=== PATIENT | male | born 1955 | race Caucasian/White ===

== ENCOUNTER 2016-04-14 12:22 | Outpatient (CLI) | payer OTHER | END 2016-04-14 12:23 | disposition home or self-care (01) | DX: M51.26 Other intervertebral disc displacement, lumbar region (principal); M51.36 Other intervertebral disc degeneration, lumbar region; M51.27 Other intervertebral disc displacement, lumbosacral region; M47.816 Spondylosis without myelopathy or radiculopathy, lumbar region ==

== ENCOUNTER 2016-05-08 10:33 | Outpatient (CLI) | payer OTHER | END 2016-05-08 10:34 | disposition home or self-care (01) | DX: R00.2 Palpitations (principal) ==

== ENCOUNTER 2016-05-08 19:10 | Outpatient (CLI) | payer OTHER | END 2016-05-08 19:11 | disposition critical access hospital (66) | DX: R00.2 Palpitations (principal) | CPT/HCPCS: A0425; A0429 ==

== ENCOUNTER 2016-05-08 19:26 | Emergency (ER) | payer OTHER ==
[2016-05-08] MEDS ORDERED: SODIUM CHLORIDE 0.9% 1,000 ML IV ONE (20:24)
[2016-05-08] MEDS ORDERED: POTASSIUM BICARB 25 MEQ TABLET PO STA (20:42)
[2016-05-08] MEDS ORDERED: MAGNESIUM SULFATE 2 GRAM 50 ML IV ONE ×2 (20:42→20:47)
[2016-05-08] MEDS ORDERED: POTASSIUM BICARB 25 MEQ TABLET PO ONE (20:47)
== END 2016-05-08 22:04 | disposition home or self-care (01) ==
DX: I49.3 Ventricular premature depolarization (principal); E87.6 Hypokalemia; E86.0 Dehydration; E83.42 Hypomagnesemia; E11.9 Type 2 diabetes mellitus without complications; Z79.84 Long term (current) use of oral hypoglycemic drugs; I10 Essential (primary) hypertension; E78.5 Hyperlipidemia, unspecified; Z79.82 Long term (current) use of aspirin
CPT/HCPCS: 36415; 80053; 83690; 83735; 84100; 84443; 84484; 85025; 93005; 93010; 96361; 96365; 99284; 99285; A9270

== ENCOUNTER 2016-05-14 10:38 | Outpatient (CLI) | payer OTHER | END 2016-05-14 10:39 | disposition home or self-care (01) | DX: R00.2 Palpitations (principal) ==

== ENCOUNTER 2016-06-04 12:25 | Outpatient (CLI) | payer OTHER | END 2016-06-04 12:26 | disposition home or self-care (01) | DX: E11.9 Type 2 diabetes mellitus without complications (principal); E78.5 Hyperlipidemia, unspecified; R35.0 Frequency of micturition; E83.42 Hypomagnesemia ==

== ENCOUNTER 2016-09-17 08:21 | Outpatient (CLI) | payer OTHER ==
[2016-09-17 12:38] LABS: HEMOGLOBIN A1C 0.69 g/dL
[2016-09-17 12:42] LABS: BILIRUBIN,TOTAL 1.9 mg/dL (0.2-1.0); BUN - BLOOD UREA NITROGEN 13 mg/dL (6-20); CALCIUM 9.4 mg/dL (8.5-10.3); CARBON DIOXIDE - CO2 30 mmol/L (21-32); CHLORIDE 98 mmol/L (101-111); CHOL/HDL RATIO 3.3 (<5.0); CHOLESTEROL 140 mg/dL; CREATININE 0.8 mg/dL (0.6-1.2); GFR - MDRD 99 (>89); GLUCOSE 133 mg/dL (70-100); HDL CHOLESTEROL 42 mg/dL; LDL/HDL RATIO 1.6 (<3.6); POTASSIUM 4.3 mmol/L (3.5-5.0); SODIUM 136 mmol/L (135-145); TRIGLYCERIDES 143 mg/dL; VLDL CHOLESTEROL 29 mg/dL
== END 2016-09-17 08:22 | disposition home or self-care (01) ==
LOC: LAB.WCP 08:21
PROVIDERS: ATTEND Physician Assistant Medical
DX: E11.9 Type 2 diabetes mellitus without complications (principal)
CPT/HCPCS: 36415; 80053; 80061; 83036

== ENCOUNTER 2016-12-28 15:04 | Outpatient (CLI) | payer OTHER ==
[2016-12-28 19:18] LABS: CALCIUM 9.7 mg/dL (8.5-10.3); CREATININE 0.9 mg/dL (0.6-1.2); MAGNESIUM 1.7 mg/dL (1.7-2.8)
[2016-12-28 19:31] LABS: HEMOGLOBIN A1C 0.66 g/dL
== END 2016-12-28 15:05 | disposition home or self-care (01) ==
LOC: LAB.WCP 15:04
PROVIDERS: ATTEND Physician Assistant Medical
DX: E11.9 Type 2 diabetes mellitus without complications (principal); E83.42 Hypomagnesemia
CPT/HCPCS: 36415; 80048; 82043; 83036; 83735

== ENCOUNTER 2017-01-28 10:55 | Outpatient (CLI) | payer OTHER | END 2017-01-28 10:56 | disposition home or self-care (01) | LOC: LAB.WCP 10:55 | PROVIDERS: ATTEND Family Medicine | DX: E87.1 Hypo-osmolality and hyponatremia (principal) | CPT/HCPCS: 36415; 80048 ==

== ENCOUNTER 2017-06-08 08:34 | Outpatient (CLI) | payer OTHER ==
[2017-06-08 13:57] LABS: CALCIUM 9.5 mg/dL (8.5-10.3); CREATININE 0.9 mg/dL (0.6-1.2); MAGNESIUM 1.8 mg/dL (1.7-2.8)
[2017-06-08 14:10] LABS: HEMOGLOBIN A1C 0.59 g/dL; HEMOGLOBIN A1C % 5.5 % (4.6-6.2)
== END 2017-06-08 08:35 | disposition home or self-care (01) ==
LOC: LAB.WCP 08:34
PROVIDERS: ATTEND Physician Assistant Medical
DX: E11.9 Type 2 diabetes mellitus without complications (principal); E83.42 Hypomagnesemia
CPT/HCPCS: 36415; 80048; 83036; 83735

== ENCOUNTER 2017-07-14 13:09 | Outpatient (CLI) | payer OTHER | END 2017-07-14 13:10 | disposition home or self-care (01) | LOC: LAB.WCP 13:09 | PROVIDERS: ATTEND Physician Assistant Medical | DX: E83.42 Hypomagnesemia (principal) | CPT/HCPCS: 36415; 83735 ==

== ENCOUNTER 2018-07-10 08:37 | Outpatient (CLI) | payer OTHER ==
[2018-07-10 12:44] LABS: CALCIUM 9.2 mg/dL (8.5-10.3); CREATININE 0.9 mg/dL (0.6-1.2); MAGNESIUM 2.1 mg/dL (1.7-2.8)
[2018-07-10 12:55] LABS: HB2 TOTAL 14.9 g/dL; HEMOGLOBIN A1C 0.65 g/dL; HEMOGLOBIN A1C % 6.1 % (4.6-6.2)
== END 2018-07-10 08:38 | disposition home or self-care (01) ==
LOC: LAB.WCP 08:37
PROVIDERS: ATTEND Physician Assistant Medical
DX: E11.9 Type 2 diabetes mellitus without complications (principal); E83.42 Hypomagnesemia
CPT/HCPCS: 36415; 80048; 83036; 83735

== ENCOUNTER 2018-11-17 08:00 | Outpatient (CLI) | payer OTHER ==
[2018-11-17 12:38] LABS: ALBUMIN 4.1 g/dL (3.2-5.5); ALBUMIN/GLOBULIN RATIO 1.6 (1.0-2.2); ALKALINE PHOSPHATASE 64 IU/L (42-121); ALT ALANINE AMINOTRANSFERASE 33 IU/L (10-60); AST ASPARTATE AMINOTRANSFERASE 26 IU/L (10-42); BILIRUBIN,TOTAL 1.8 mg/dL (0.2-1.0); BUN - BLOOD UREA NITROGEN 13 mg/dL (6-20); CALCIUM 9.3 mg/dL (8.5-10.3); CARBON DIOXIDE - CO2 27 mmol/L (21-32); CHLORIDE 99 mmol/L (101-111); CHOL/HDL RATIO 3.7 (<5.0); CHOLESTEROL 146 mg/dL; CREATININE 0.9 mg/dL (0.6-1.2); GFR - MDRD 86 (>89); GLUCOSE 154 mg/dL (70-100); HDL CHOLESTEROL 40 mg/dL; LDL CHOLESTEROL,CALCULATED 75 mg/dL; LDL/HDL RATIO 1.9 (<3.6); SODIUM 137 mmol/L (135-145); TOTAL PROTEIN 6.7 g/dL (6.7-8.2); VLDL CHOLESTEROL 31 mg/dL
[2018-11-17 13:07] LABS: HB2 TOTAL 15.8 g/dL; HEMOGLOBIN A1C 0.64 g/dL; HEMOGLOBIN A1C % 5.9 % (4.6-6.2)
[2018-11-17 14:06] LABS: BASOPHILS % (AUTO) 0.8 %; EOSINOPHILS # (AUTO) 0.3 10^3/uL (0.0-0.7); EOSINOPHILS % (AUTO) 6.6 %; HGB - HEMOGLOBIN 15.1 g/dL (14.0-18.0); LYMPHOCYTES # (AUTO) 1.2 10^3/uL (1.5-3.5); LYMPHOCYTES % (AUTO) 23.9 %; MEAN CORPUSCULAR HEMOGLOBIN 31.4 pg (27.0-31.0); MEAN CORPUSCULAR HGB CONC 33.7 g/dL (32.0-36.0); MEAN CORPUSCULAR VOLUME 93.1 fL (80.0-94.0); MEAN PLATELET VOLUME 9.3 fL (7.4-11.4); MONOCYTES # (AUTO) 0.6 10^3/uL (0.0-1.0); MONOCYTES % (AUTO) 11.3 %; NEUTROPHILS # (AUTO) 2.9 10^3/uL (1.5-6.6); PLT - PLATELET COUNT 336 10^3/uL (130-450); RED BLOOD COUNT 4.81 10^6/uL (4.70-6.10); RED CELL DISTRIBUTION WIDTH 11.9 % (12.0-15.0); WHITE BLOOD COUNT 5.1 x10^3/uL (4.8-10.8)
== END 2018-11-17 23:59 ==
LOC: LAB.WCP 08:00
PROVIDERS: ATTEND Physician Assistant Medical
DX: Z00.00 Encounter for general adult medical examination without abnormal findings (principal); E11.9 Type 2 diabetes mellitus without complications; E78.5 Hyperlipidemia, unspecified; Z12.5 Encounter for screening for malignant neoplasm of prostate; E83.42 Hypomagnesemia
CPT/HCPCS: 36415; 80053; 80061; 83036; 83721; 83735; 84153; 85025

== ENCOUNTER 2019-03-23 08:00 | Outpatient (CLI) | payer OTHER ==
[2019-03-23 13:48] LABS: CREATININE 0.9 mg/dL (0.6-1.2); MAGNESIUM 1.9 mg/dL (1.7-2.8)
[2019-03-23 14:00] LABS: HB2 TOTAL 15.7 g/dL; HEMOGLOBIN A1C 0.58 g/dL; HEMOGLOBIN A1C % 5.5 % (4.6-6.2)
== END 2019-03-23 23:59 | disposition home or self-care (01) ==
LOC: LAB.WCP 08:00
PROVIDERS: ATTEND Physician Assistant Medical
DX: E11.9 Type 2 diabetes mellitus without complications (principal); E83.42 Hypomagnesemia
CPT/HCPCS: 36415; 80048; 83036; 83735

== ENCOUNTER 2019-03-28 11:13 | Outpatient (CLI) | payer OTHER ==
--- NOTE | 2019-03-28 15:33 | XRAY Report ---
Reason: RIGHT TROCHANTERIC BURSITIS Procedure Date: 03/28/2019 Accession Number: [id number] / [id number] Procedure: WCP - Hip 1 View RT CPT Code: Addended Final Report FULL RESULT: EXAM: RIGHT HIP RADIOGRAPHY EXAM DATE: 03/28/2019 11:13 AM. CLINICAL HISTORY: Chronic right hip pain. COMPARISON: None. TECHNIQUE: 2 views. FINDINGS: Bones: Normal bone mineralization. No fractures or bone lesion. Joints: Normal. No dislocation. The hip joint space is preserved. Soft Tissues: No soft tissue swelling. Pelvic phleboliths. Ovoid calcifications in the left hemipelvis measuring 12 mm in diameter. IMPRESSION: 1. No fracture, subluxation or hip joint effusion. 2. Left pelvic ovoid calcification measuring 12 mm in diameter. [facility] ADDENDUM: 03/30/19 15:28 The pelvic calcifications are most likely phleboliths in the absence of clinical or laboratory findings of urinary tract stones.
== END 2019-03-28 23:59 | disposition home or self-care (01) ==
LOC: DI.WCP 11:13
PROVIDERS: ATTEND Physician Assistant Medical
DX: M70.61 Trochanteric bursitis, right hip (principal)

== ENCOUNTER 2019-06-20 08:29 | Outpatient (CLI) | payer OTHER ==
[2019-06-20 13:09] LABS: ALBUMIN 4.4 g/dL (3.2-5.5); ALBUMIN/GLOBULIN RATIO 1.9 (1.0-2.2); ALKALINE PHOSPHATASE 65 IU/L (42-121); ALT ALANINE AMINOTRANSFERASE 28 IU/L (10-60); AST ASPARTATE AMINOTRANSFERASE 26 IU/L (10-42); BILIRUBIN,TOTAL 1.7 mg/dL (0.2-1.0); BUN - BLOOD UREA NITROGEN 13 mg/dL (6-20); CARBON DIOXIDE - CO2 27 mmol/L (21-32); CHLORIDE 104 mmol/L (101-111); CHOLESTEROL 161 mg/dL; CREATININE 0.9 mg/dL (0.6-1.2); GLUCOSE 135 mg/dL (70-100); HDL CHOLESTEROL 40 mg/dL; LDL CHOLESTEROL,CALCULATED 85 mg/dL; LDL/HDL RATIO 2.1 (<3.6); SODIUM 138 mmol/L (135-145); TOTAL PROTEIN 6.7 g/dL (6.7-8.2); VLDL CHOLESTEROL 36 mg/dL
[2019-06-20 13:17] LABS: HB2 TOTAL 15.8 g/dL; HEMOGLOBIN A1C 0.63 g/dL; HEMOGLOBIN A1C % 5.8 % (4.6-6.2)
== END 2019-06-20 23:59 | disposition home or self-care (01) ==
LOC: LAB.WCP 08:29
PROVIDERS: ATTEND Physician Assistant Medical
DX: E11.9 Type 2 diabetes mellitus without complications (principal)
CPT/HCPCS: 36415; 80053; 80061; 83036; 83721

== ENCOUNTER 2019-10-06 10:51 | Emergency (ER) | payer OTHER ==
--- NOTE | 2019-10-06 11:16 | ED Physician Documentation ---
PD HPI UPPER EXT INJURY - Stated complaint Stated Complaint: L SHOULDER PAIN - Chief complaint Chief Complaint: Ext Problem - History obtained from History obtained from: Patient - Additonal information Additional information: This is a mostly right-handed but somewhat ambidextrous 63-year-old gentleman with history of right shoulder issues. 4 days ago he was throwing something in the yard and developed a sometimes severe diffuse left shoulder pain that is worse with certain movements. No fall or specific injury other than that. No history of left shoulder issues. Review of Systems Constitutional: reports: Reviewed and negative Nose: reports: Reviewed and negative Throat: reports: Reviewed and negative Cardiac: reports: Reviewed and negative PD PAST MEDICAL HISTORY - Past Medical History Cardiovascular: Hypertension, High cholesterol Endocrine/Autoimmune: Type 2 diabetes - Past Surgical History Past Surgical History: Yes General: Cholecystectomy - Present Medications Home Medications: Ambulatory Orders Medication Instructions Recorded Confirmed Aspirin 81 mg PO DAILY 05/08/16 05/08/16 Atorvastatin [Lipitor] 40 mg PO DAILY 05/08/16 05/08/16 atenoloL [Atenolol] 25 mg PO BID 05/08/16 05/08/16 hydroCHLOROthiazide 25 mg PO DAILY 05/08/16 05/08/16 [Hydrochlorothiazide] lisinopriL [Lisinopril] 40 mg PO DAILY 05/08/16 05/08/16 metFORMIN [Glucophage] 500 mg PO TID 05/08/16 05/08/16 Oxycodone HCl/Acetaminophen 1 - 2 each PO Q6H PRN #14 tablet 10/06/19 [Percocet 5-325 mg Tablet] - Allergies Allergies/Adverse Reactions: Allergies Allergy/AdvReac Type Severity Reaction Status Date / Time No Known Drug Allergies Allergy Verified 05/08/16 19:30 - Social History Does the pt smoke?: No Smoking Status: Never smoker Does the pt drink ETOH?: Yes Does the pt have substance abuse?: Yes PD ED PE NORMAL - Vitals Vital signs reviewed: Yes - General General: Alert and oriented X 3, No acute distress - Extremities Extremities: Other (Left shoulder is nontender, he has a lot of pain with abduction and also reaching across his chest. Negative supraspinatus testing. Painless internal and external rotation. He is able to abduct to about 90 degrees.) - Neuro Neuro: Alert and oriented X 3, Normal speech Results - Vitals Vitals: Vital Signs - 24 hr 10/06/19 11:01 Temperature 36.8 C Heart Rate 78 Respiratory 16 Rate Blood Pressure 175/98 H O2 Saturation 98 Oxygen O2 Source Room air - Rads (name of study) L shoulder XR Radiology: EMP read contemporaneously (Calcifications near the humeral head consistent with chronic rotator cuff tendinopathy, degenerative changes of the left AC joint, no acute fractures.) Departure - Departure Disposition: 01 Home, Self Care Clinical Impression: Rotator cuff tendinitis Qualifiers: Laterality: left Qualified Code(s): M75.82 - Other shoulder lesions, left shoulder Condition: Good Record reviewed to determine appropriate education?: Yes Instructions: ED Tendinitis Calcific Prescriptions: Oxycodone HCl/Acetaminophen [Percocet 5-325 mg Tablet] 1 - 2 each PO Q6H PRN #14 tablet PRN Reason: pain Comments: Do the exercises as shown to maintain mobility in the shoulder joints. Follow- up with your doctor, they may refer you to orthopedics if it is persistent for consideration for steroid injection at our. Return if worse. Do not drink or drive while taking narcotic pain medication. Note that many narcotic pain relievers also contain Tylenol/acetaminophen. Please ensure that your total dose of acetaminophen from all sources does not exceed 3 g (3000 mg) per day. You may get constipated while on this medication. Take a stool softener such as Colace twice a day while you are on it. Also add an [id number] laxative such as senna or MiraLAX on any day that you do not have a bowel movement. If you received a narcotic pain medication or sedative while in the emergency department, do not drive for the next 24 hours.
--- NOTE | 2019-10-06 11:55 | XRAY Report ---
PROCEDURE: Shoulder 3 View LT INDICATIONS: l shoulder inj TECHNIQUE: 3 views of the shoulder were acquired. COMPARISON: None. FINDINGS: Bones: No fractures or dislocations. No suspicious bony lesions. Degenerative changes of the left acromioclavicular joint. Visualized ribs appear intact. Soft tissues: Soft tissue calcifications over the superolateral left humeral head. No suspicious sof t tissue calcifications. IMPRESSION: 1. Soft tissue calcifications over the superolateral left humeral head suggestive of sequela of chron ic calcific rotator cuff tendinopathy. 2. Degenerative changes of the left acromioclavicular joint. 3. Left shoulder without acute fracture or dislocation. Reviewed by: Adrian Vergara MD on 10/06/2019 11:53 AM PDT Approved by: Adrian Vergara MD on 10/06/2019 11:53 AM PDT Station ID: [id number]
[2019-10-06 12:13] VITALS: BP 153/105
== END 2019-10-06 12:13 | disposition home or self-care (01) ==
LOC: ED 10:51
DX: M75.32 Calcific tendinitis of left shoulder (principal); M19.012 Primary osteoarthritis, left shoulder; I10 Essential (primary) hypertension; E11.9 Type 2 diabetes mellitus without complications; Z79.84 Long term (current) use of oral hypoglycemic drugs; Z79.82 Long term (current) use of aspirin
CPT/HCPCS: 99283

== ENCOUNTER 2020-01-17 07:45 | Day surgery (SDC) | payer OTHER ==
[2020-01-17] MEDS ORDERED: LACTATED RINGERS 1,000 ML IV ONE ×2 (08:28→10:31)
[2020-01-17] MEDS ORDERED: MIDAZOLAM 2 MG/2 ML VIAL IVP ONE (10:03)
[2020-01-17] MEDS ORDERED: fentaNYL 100 MCG/2 ML VIAL IVP ONE (10:03)
[2020-01-17 10:47] VITALS: BP 107/73
== END 2020-01-17 07:46 | disposition home or self-care (01) ==
LOC: SDS 07:45
PROVIDERS: ATTEND Surgery
DX: Z12.11 Encounter for screening for malignant neoplasm of colon (principal); K57.30 Diverticulosis of large intestine without perforation or abscess without bleeding; I10 Essential (primary) hypertension; E11.9 Type 2 diabetes mellitus without complications; Z79.84 Long term (current) use of oral hypoglycemic drugs
CPT/HCPCS: 45378; J7120

== ENCOUNTER 2020-09-30 08:00 | Outpatient (CLI) | payer OTHER ==
[2020-09-30 12:48] LABS: CREATININE,URINE 35.7 mg/dL; MICROALBUM/CREATININE RATIO,UR 25.2 ug/mg (<30.0); MICROALBUMIN,URINE 0.9 mg/dL (0-300.0)
== END 2020-09-30 23:59 | disposition home or self-care (01) ==
LOC: LAB.WCP 08:00
PROVIDERS: ATTEND Physician Assistant Medical
DX: E11.9 Type 2 diabetes mellitus without complications (principal)
CPT/HCPCS: 82043; 82570

== ENCOUNTER 2020-12-24 08:58 | Outpatient (CLI) | payer OTHER ==
[2020-12-24 12:42] LABS: ALBUMIN 4.6 g/dL (3.2-5.5); ALBUMIN/GLOBULIN RATIO 1.8 (1.0-2.2); ALKALINE PHOSPHATASE 63 IU/L (42-121); ALT ALANINE AMINOTRANSFERASE 26 IU/L (10-60); AST ASPARTATE AMINOTRANSFERASE 21 IU/L (10-42); BILIRUBIN,TOTAL 1.3 mg/dL (0.2-1.0); BUN - BLOOD UREA NITROGEN 14 mg/dL (6-20); CALCIUM 9.4 mg/dL (8.5-10.3); CARBON DIOXIDE - CO2 31 mmol/L (21-32); CHLORIDE 98 mmol/L (101-111); CHOL/HDL RATIO 3.2 (<5.0); CHOLESTEROL 140 mg/dL; GFR - MDRD 75 (>89); GLUCOSE 136 mg/dL (70-100); HDL CHOLESTEROL 44 mg/dL; LDL CHOLESTEROL,CALCULATED 70 mg/dL; LDL/HDL RATIO 1.6 (<3.6); POTASSIUM 4.6 mmol/L (3.5-5.0); SODIUM 138 mmol/L (135-145); TOTAL PROTEIN 7.1 g/dL (6.7-8.2); TRIGLYCERIDES 128 mg/dL; VLDL CHOLESTEROL 26 mg/dL
[2020-12-24 13:00] LABS: ESTIMATED AVERAGE GLUCOSE 114 mg/dL (70-100); HEMOGLOBIN A1c% 5.6 % (4.27-6.07)
== END 2020-12-24 23:59 | disposition home or self-care (01) ==
LOC: LAB.WCP 08:58
PROVIDERS: ATTEND Physician Assistant Medical
DX: I49.3 Ventricular premature depolarization (principal); Z12.5 Encounter for screening for malignant neoplasm of prostate; E11.9 Type 2 diabetes mellitus without complications
CPT/HCPCS: 36415; 80053; 80061; 83036; 83721; 83735; 84153

== ENCOUNTER 2021-07-21 18:11 | Outpatient (CLI) | payer OTHER ==
[2021-07-21 18:24] LABS: BILIRUBIN,URINE NEGATIVE (NEGATIVE); GLUCOSE, URINE (UA) NEGATIVE (NEGATIVE); KETONES,URINE (UA) NEGATIVE (NEGATIVE); LEUKOCYTE ESTERASE, URINE NEGATIVE (NEGATIVE); NITRITE,URINE NEGATIVE (NEGATIVE); OCCULT BLOOD,URINE TRACE-INTA (NEGATIVE); PROTEIN,URINE NEGATIVE (NEGATIVE); UROBILINOGEN,URINE 0.2 (NORMAL) E.U./dL (NORMAL)
[2021-07-21 18:25] LABS: CLARITY,URINE CLEAR (CLEAR)
[2021-07-21 18:48] LABS: BACTERIA,URINE Rare /HPF (None Seen); RBC,URINE 0-5 /HPF (0-5); SQUAMOUS EPITHELIAL CELL,UR RARE Squamous (<= Few); WBC,URINE 0-3 /HPF (0-3)
== END 2021-07-21 18:12 | disposition home or self-care (01) ==
LOC: LAB 18:11
PROVIDERS: ATTEND Nurse Practitioner
DX: R30.0 Dysuria (principal)
CPT/HCPCS: 81001; 87086

== ENCOUNTER 2021-10-28 08:00 | Outpatient (CLI) | payer OTHER ==
[2021-11-02 15:08] LABS: CALCIUM OXALATE DIHYDRATE 100 % (.); STONE COLOR Tan (.); STONE SIZE 8x5 mm (.); STONE WEIGHT 90 mg (.)
== END 2021-10-28 23:59 | disposition home or self-care (01) ==
LOC: LAB.N 08:00
PROVIDERS: ATTEND Physician Assistant Medical
DX: N20.0 Calculus of kidney (principal)
CPT/HCPCS: 82365

== ENCOUNTER 2022-12-10 12:42 | Outpatient (CLI) | payer MEDICARE, OTHER ==
--- NOTE | 2022-12-10 16:51 | MRI Report ---
PROCEDURE: SHOULDER WO - LT INDICATIONS: SHOULDER IMPINGEMENT SYNDROME TECHNIQUE: Noncontrast oblique coronal T2 fast spin echo with fat saturation, oblique sagittal T1 spin echo and T2 fast spin echo with fat saturation, axial T1 spin echo and T2 fast spin echo with fat saturation t hrough the shoulder. COMPARISON: None. FINDINGS: Image quality: Excellent. Rotator cuff: Low-grade articular and bursal surface partial-thickness involving distal supraspinatus at its insertion on humeral head is seen extending to muscular tendinous junction. Low-grade articul ar surface partial-thickness tear involving distal infraspinatus at its insertion on humeral head is also noted. Distal subscapularis tendinosis is seen. No full-thickness rotator cuff tendon rupture. M ild supraspinatus muscle atrophy is seen on sagittal images. Bones and bursae: No bone marrow contusions or fractures. Deqb-[id number] acromioclavicular joint o steoarthritic changes are seen with joint space narrowing downward osteophyte formation depressing on musculotendinous junction of supraspinatus.. The acromion demonstrates conventional anatomy, withou t an os acromiale. No pathologic subacromial/subdeltoid bursal fluid is present. Capsule and soft tissues: There is subtle signal abnormality and contour irregularity involving anter ior inferior labrum extending from 5 to 7:00 position. The long head of the biceps tendon demonstrate s normal location and morphology. The rotator interval appears normal, without fibrosis. The coraco humeral ligament is normal in thickness. IMPRESSION: 1. Low-grade articular and bursal surface partial-thickness involving distal supraspinatus extending to muscular tendinous junction. Low-grade articular surface partial-thickness involving distal infras pinatus. Distal subscapularis tendinosis. No full-thickness rotator cuff tendon rupture. Mild suprasp inatus muscle atrophy. 2. Mild to moderate acromioclavicular joint osteoarthritis. No fracture or dislocation. No significan t joint effusion or subacromial subdeltoid bursal fluid. 3. Suggestion of inferior labral tear at 5 to 7:00 position. Reviewed by: Aleksandr Pratt MD on 12/10/2022 4:49 PM PDT Approved by: Aleksandr Pratt MD on 12/10/2022 4:49 PM PDT Station ID: [id number]
== END 2022-12-10 12:43 | disposition home or self-care (01) ==
LOC: DI 12:42
PROVIDERS: ATTEND Physician Assistant Medical
DX: M75.112 Incomplete rotator cuff tear or rupture of left shoulder, not specified as traumatic (principal); M19.012 Primary osteoarthritis, left shoulder; M62.512 Muscle wasting and atrophy, not elsewhere classified, left shoulder